=== PATIENT | male | born 1995 | race Caucasian/White ===

== ENCOUNTER 2017-01-21 11:44 | Emergency (ER) | payer BC ==
[2017-01-21 11:56] VITALS: BP 115/68
--- NOTE | 2017-01-21 12:16 | UC ---
Throat Pain/Nasal Al HPI - HPI Summary HPI Summary: 21 yo male with severe allergy symptoms since December runny nose itchy eyes nasal congestion no relief with his OTC meds has needed allergy shots in the past - History of Current Complaint Chief Complaint: UCRespiratory Stated Complaint: ALLERGIES Time Seen by Provider: 01/21/17 11:59 Hx Obtained From: Patient Onset/Duration: Gradual Onset, Lasting Weeks Severity: Severe Pain Intensity: 2 Pain Scale Used: 0-10 Numeric Cough: Productive Associated Signs & Symptoms: Positive: Nasal Discharge Related History: Seasonal Allergies - Epiglottits Risk Factors Epiglottis Risk Factors: Negative - Allergies/Home Medications Allergies/Adverse Reactions: Allergies Allergy/AdvReac Type Severity Reaction Status Date / Time No Known Allergies Allergy Verified 01/21/17 11:52 PMH/Surg Hx/FS Hx/Imm Hx Previously Healthy: Yes - Surgical History Surgical History: Yes Surgery Procedure, Year, and Place: Right Meniscus Knee Arthroscopy, 2011 2012, [facility] [place] - Family History Known Family History: Positive: Hypertension, Respiratory Disease - Social History Alcohol Use: Rare Substance Use Type: None Smoking Status (MU): Never Smoked Tobacco - Immunization History Most Recent Influenza Vaccination: Fall 2015 Review of Systems Constitutional: Negative Skin: Negative Eyes: Negative ENT: Ear Ache, Nasal Discharge Respiratory: Negative Cardiovascular: Negative Gastrointestinal: Negative Genitourinary: Negative Motor: Negative Neurovascular: Negative Musculoskeletal: Negative Neurological: Negative Psychological: Negative All Other Systems Reviewed And Are Negative: Yes Physical Exam Triage Information Reviewed: Yes Appearance: Well-Appearing, No Pain Distress, Well-Nourished Vital Signs: Initial Vital Signs Temp 97.7 F 01/21/17 11:49 Pulse 98 01/21/17 11:49 Resp 18 01/21/17 11:49 BP 115/68 01/21/17 11:49 Pulse Ox 100 01/21/17 11:49 Vital Signs Reviewed: Yes Eyes: Positive: Conjunctiva Clear ENT: Positive: Hearing grossly normal, Nasal congestion, Nasal drainage. Negative: Pharynx normal, Pharyngeal erythema, Tonsillar swelling, Tonsillar exudate, Trismus, Muffled/hoarse voice Dental Exam: Normal Neck: Positive: Supple, Nontender, No Lymphadenopathy Respiratory: Positive: Lungs clear, Normal breath sounds, No respiratory distress, No accessory muscle use Cardiovascular: Positive: RRR, No Murmur Bowel Sounds: Positive: Present Musculoskeletal: Positive: ROM Intact, No Edema Neurological: Positive: Alert Psychological Exam: Normal Skin Exam: Normal Throat Pain/Nasal Course/Dx - Differential Dx/Diagnosis Provider Diagnoses: seasonal allergic rhinitis Discharge - Discharge Plan Condition: Stable Disposition: HOME Prescriptions: Fluticasone NASAL SPRAY 50MCG* [Flonase NASAL SPRAY 50MCG*] 2 spray BOTH NARES DAILY #1 btl Loratadine & Pseudoephedrine [Claritin-D 24 Hour 10-240 mg] 1 tab PO DAILY PRN # 30 tab PRN Reason: allergy symptoms Patient Education Materials: Allergic Rhinitis (ED) Referrals: Non Staff,Doctor [Primary Care Provider] - Additional Instructions: see lead java software engineer as planned ZADITOR eye drops OTC
== END 2017-01-21 12:24 | disposition home or self-care (01) ==
LOC: UCCORT 11:44
DX: J30.2 Other seasonal allergic rhinitis (principal)
CPT/HCPCS: 99212; G0463

== ENCOUNTER 2017-09-07 13:03 | Emergency (ER) | payer BC ==
[2017-09-07 14:19] VITALS: BP 109/68
--- NOTE | 2017-09-07 14:38 | UC ---
Respiratory Complaint HPI - HPI Summary HPI Summary: cough x 2 days + sore throat, fever, chills, body aches - History of Current Complaint Chief Complaint: UCGeneralIllness Stated Complaint: BODY ACHES,COUGH Time Seen by Provider: 09/07/17 14:16 Hx Obtained From: Patient Onset/Duration: Gradual Onset, Lasting Days - 2, Still Present Timing: Constant Severity Initially: Moderate Severity Currently: Moderate Character: Cough: Nonproductive Aggravating Factors: Exertion, Deep Breaths Associated Signs And Symptoms: Positive: Fever, Chills, URI, Nasal Congestion - Allergies/Home Medications Allergies/Adverse Reactions: Allergies Allergy/AdvReac Type Severity Reaction Status Date / Time No Known Allergies Allergy Verified 09/07/17 14:19 PMH/Surg Hx/FS Hx/Imm Hx Previously Healthy: Yes - Surgical History Surgical History: Yes Surgery Procedure, Year, and Place: Right Meniscus Knee Arthroscopy, 2011 2012, [facility] - Family History Known Family History: Positive: Hypertension, Respiratory Disease - Social History Alcohol Use: Rare Substance Use Type: None Smoking Status (MU): Never Smoked Tobacco - Immunization History Most Recent Influenza Vaccination: CURRENT 2016/2017 Review of Systems Constitutional: Fever, Chills, Fatigue Skin: Negative Eyes: Negative ENT: Sore Throat, Nasal Discharge Respiratory: Cough Cardiovascular: Negative Gastrointestinal: Negative Musculoskeletal: Arthralgia, Myalgia Is Patient Immunocompromised?: No All Other Systems Reviewed And Are Negative: Yes Physical Exam Triage Information Reviewed: Yes Appearance: Well-Appearing, No Pain Distress, Well-Nourished Vital Signs: Initial Vital Signs Temp 99.1 F 09/07/17 14:15 Pulse 108 09/07/17 14:15 Resp 18 09/07/17 14:15 BP 109/68 09/07/17 14:15 Pulse Ox 99 09/07/17 14:15 Vital Signs Reviewed: Yes Eyes: Positive: Conjunctiva Clear ENT: Positive: Normal ENT inspection, Hearing grossly normal, Pharyngeal erythema, Nasal congestion Neck exam: Normal Neck: Positive: Supple, Nontender, No Lymphadenopathy Respiratory: Positive: Chest non-tender, Lungs clear, Normal breath sounds, No respiratory distress Cardiovascular: Positive: No Murmur, Tachycardia Abdominal Exam: Normal Abdomen Description: Positive: Nontender, Soft Bowel Sounds: Positive: Present Skin Exam: Normal UC Diagnostic Evaluation - Laboratory O2 Sat by Pulse Oximetry: 99 Respiratory Course/Dx - Differential Dx/Diagnosis Provider Diagnoses: pharyngitis Discharge - Discharge Plan Condition: Stable Disposition: HOME Prescriptions: Azithromycin TAB* [Zithromax TAB (Z-COY) 250 mg #6 tabs] 2 tab PO .TODAY, THEN 1 DAILY #1 coy Patient Education Materials: Pharyngitis (ED) Referrals: No Primary Care Phys,NOPCP [Primary Care Provider] - If Needed
== END 2017-09-07 14:59 | disposition home or self-care (01) ==
LOC: UCCORT 13:03
DX: J02.9 Acute pharyngitis, unspecified (principal)
CPT/HCPCS: 87502; 99212; G0463

== ENCOUNTER 2018-01-16 10:56 | Emergency (ER) | payer BC ==
[2018-01-16 13:20] VITALS: BP 115/63
[2018-01-16] MEDS ORDERED: Ibuprofen ADULT LIQ* 600 MG/30 ML UDC PO ONE (13:42)
--- NOTE | 2018-01-16 13:42 | UC ---
UC General HPI - HPI Summary HPI Summary: began about 2-3 days ago with sneezing and itchy eyes, took twan. yesterday, developed a subjective fever, sore throat, cough, headache and stiff neckk plus sore mm and some joint pains. no cp, sob, v/d/dysuria - History of Current Complaint Hx Obtained From: Patient, Family/Swimming Pool Installer And Servicer Onset/Duration: Gradual Onset Timing: Constant Pain Intensity: 6 Aggravating: nothing Associated Signs & Symptoms: Positive: Cough, Fever, Headache <Janice Luu - Last Filed: 01/16/18 13:33> <Jane Angel - Last Filed: 01/16/18 20:28> - History of Current Complaint Chief Complaint: UCGeneralIllness Stated Complaint: ACHY, HEADACHE, FEVER, FATIGUE Time Seen by Provider: 01/16/18 13:33 - Allergy/Home Medications Allergies/Adverse Reactions: Allergies Allergy/AdvReac Type Severity Reaction Status Date / Time No Known Allergies Allergy Verified 01/16/18 13:23 Home Medications: Home Medications Fexofenadine/Pseudoephedrine [Twan-D 24 Hour Tablet] 1 each PO 01/16/18 [ History] PMH/Surg Hx/FS Hx/Imm Hx Previously Healthy: Yes - Surgical History Surgical History: Yes Surgery Procedure, Year, and Place: Right Meniscus Knee Arthroscopy, 2011 2012, [facility] [place] - Family History Known Family History: Positive: Hypertension, Respiratory Disease - Social History Occupation: Student Lives: With Family Alcohol Use: Rare Substance Use Type: None Smoking Status (MU): Never Smoked Tobacco - Immunization History Most Recent Influenza Vaccination: CURRENT 2016/2017 Vaccination Up to Date: Yes <Janice Luu - Last Filed: 01/16/18 13:33> Review of Systems Constitutional: Fever, Chills ENT: Sore Throat Respiratory: Cough Musculoskeletal: Arthralgia, Myalgia Neurological: Headache Is Patient Immunocompromised?: No All Other Systems Reviewed And Are Negative: Yes <Janice Luu - Last Filed: 01/16/18 13:33> Physical Exam Triage Information Reviewed: Yes Appearance: Well-Appearing Vital Signs: Initial Vital Signs Temp 99.2 F 01/16/18 13:16 Pulse 109 01/16/18 13:16 Resp 18 01/16/18 13:16 BP 115/63 01/16/18 13:16 Pulse Ox 98 01/16/18 13:16 Eyes: Positive: Conjunctiva Clear ENT: Positive: Pharyngeal erythema - ? slight, TMs normal. Negative: Nasal congestion, Nasal drainage Neck: Positive: Supple, Nontender, No Lymphadenopathy. Negative: Nuchal Rigidity Respiratory: Positive: Lungs clear, Normal breath sounds, No respiratory distress Cardiovascular: Positive: RRR, No Murmur, Pulses Normal Abdomen Description: Positive: Nontender, No Organomegaly, Soft Bowel Sounds: Positive: Present Musculoskeletal: Positive: ROM Intact, No Edema Neurological: Positive: Alert Psychological: Positive: Normal Response To Family, Age Appropriate Behavior Skin Exam: Normal <Janice Luu - Last Filed: 01/16/18 13:33> Vital Signs: Initial Vital Signs Temp 99.2 F 01/16/18 13:16 Pulse 109 01/16/18 13:16 Resp 18 01/16/18 13:16 BP 115/63 01/16/18 13:16 Pulse Ox 98 01/16/18 13:16 <Jane Angel - Last Filed: 01/16/18 20:28> Diagnostics - Laboratory Diagnostic Studies Completed/Ordered: rapid flu and strep are neg <Janice Luu - Last Filed: 01/16/18 13:33> Re-Evaluation - Re-Evaluation Second Eval Change: Improved - HODGSON improving with the motrin <Janice Luu - Last Filed: 01/16/18 13:33> Course/Dx - Course Course Of Treatment: rapid flu and strep=neg. pt is non toxic. no concern for meningitis. tx supportive. close f/u for recheck advised. - Differential Dx - Multi-Symptom Provider Diagnoses: sore throat, myalgias, subjective fever <Janice Luu - Last Filed: 01/16/18 13:33> Discharge - Sign-Out/Discharge Documenting (check all that apply): Discharge/Admit/Transfer - Billing Disposition and Condition Condition: IMPROVED Disposition: HOME <Janice Luu - Last Filed: 01/16/18 13:33> - Billing Disposition and Condition Condition: IMPROVED Disposition: HOME <Jane Angel - Last Filed: 01/16/18 20:28> - Discharge Plan Condition: Improved Disposition: HOME Patient Education Materials: Pharyngitis (ED), Fever in Adults (ED), Musculoskeletal Pain (ED) Referrals: Maureen Christensen PA [Primary Care Provider] - 5 Days Attestation Statement User Type: Provider - I was available for consult. This patient was seen by the KAYLA. The patient was not presented to, seen by, or examined by me. -Bryce <Jane Angel - Last Filed: 01/16/18 20:28>
== END 2018-01-16 14:38 | disposition home or self-care (01) ==
LOC: UCCORT 10:56
DX: J02.9 Acute pharyngitis, unspecified (principal); M79.1 Myalgia; R50.9 Fever, unspecified
CPT/HCPCS: 87502; 87651; 99212; A9270-GY; G0463

== ENCOUNTER 2019-01-23 15:32 | Emergency (ER) | payer BC ==
[2019-01-23 16:08] VITALS: BP 99/67
--- NOTE | 2019-01-23 16:27 | UC ---
Respiratory Complaint HPI - HPI Summary HPI Summary: 23 yo male with about a 24 hour hx of sore throat (now resolved), cough, runny nose , fever, chills, headache and malaise as well as myalgias nausea no vomiting or diarrhea no CP or sob - History of Current Complaint Chief Complaint: UCGeneralIllness Stated Complaint: COUGH,FEVER,SINUSES,NAUSEA Time Seen by Provider: 01/23/19 16:21 Hx Obtained From: Patient Onset/Duration: Gradual Onset, Lasting Hours Timing: Constant Severity Initially: Mild Severity Currently: Moderate Pain Intensity: 2 Pain Scale Used: 0-10 Numeric Character: Cough: Nonproductive Aggravating Factors: Nothing Alleviating Factors: Nothing Associated Signs And Symptoms: Positive: Fever, Chills, Nasal Congestion - Allergies/Home Medications Allergies/Adverse Reactions: Allergies Allergy/AdvReac Type Severity Reaction Status Date / Time No Known Allergies Allergy Verified 01/16/18 13:23 Home Medications: Home Medications Cetirizine* [ZyrTEC 10 MG TAB*] 10 mg PO DAILY 01/23/19 [History Confirmed 01/23] D-Methorphan/PE/Acetaminophen [Gnp Day Time Cold/Flu Rel] 1 liq PO DAILY [History Confirmed 01/23/19] PMH/Surg Hx/FS Hx/Imm Hx Previously Healthy: Yes Respiratory History: Asthma - childhood - Surgical History Surgical History: Yes Surgery Procedure, Year, and Place: Right [place] [facility] [place] Family History Known Family History: Positive: Hypertension, Respiratory Disease - Social History Alcohol Use: Occasionally Substance Use Type: None Smoking Status (MU): Never Smoked Tobacco - Immunization History Most Recent Influenza Vaccination: CURRENT 2016/2017 Vaccination Up to Date: Yes Review of Systems All Other Systems Reviewed And Are Negative: Yes Constitutional: Positive: Fever, Chills, Fatigue ENT: Positive: Sore Throat - yesterday/none today, Nasal Discharge, Sinus Congestion, Sinus Pain/Tenderness Respiratory: Positive: Cough Cardiovascular: Positive: Negative Gastrointestinal: Positive: Negative Genitourinary: Positive: Negative Motor: Positive: Negative Neurovascular: Positive: Negative Musculoskeletal: Positive: Arthralgia, Myalgia Neurological: Positive: Headache Is Patient Immunocompromised?: Yes Physical Exam Triage Information Reviewed: Yes Appearance: Well-Appearing, No Pain Distress, Well-Nourished Vital Signs: Initial Vital Signs Temp 99.1 F 01/23/19 16:04 Pulse 105 01/23/19 16:04 Resp 18 01/23/19 16:04 BP 99/67 01/23/19 16:04 Pulse Ox 98 01/23/19 16:04 Vital Signs Reviewed: Yes Eyes: Positive: Conjunctiva Clear ENT: Positive: Hearing grossly normal, Pharynx normal, Nasal congestion, Nasal drainage, TMs normal, Uvula midline. Negative: Tonsillar swelling, Tonsillar exudate, Trismus, Muffled voice, Hoarse voice, Sinus tenderness Neck: Positive: Supple, Nontender, No Lymphadenopathy Respiratory: Positive: Lungs clear, Normal breath sounds, No respiratory distress, No accessory muscle use Cardiovascular: Positive: RRR, No Murmur Abdomen Description: Positive: Nontender, No Organomegaly Bowel Sounds: Positive: Present Musculoskeletal: Positive: ROM Intact, No Edema Neurological: Positive: Alert Psychological Exam: Normal Skin Exam: Normal Diagnostics - Laboratory Lab Results: influenza (-) Respiratory Course/Dx - Differential Dx/Diagnosis Provider Diagnosis: Viral URI with cough Discharge - Sign-Out/Discharge Documenting (check all that apply): Patient Departure All imaging exams completed and their final reports reviewed: No Studies - Discharge Plan Condition: Stable Disposition: HOME Prescriptions: Benzonatate CAP* [Tessalon CAP*] 100 - 200 mg PO TID PRN #28 cap PRN Reason: Cough Fluticasone NASAL SPRAY 50MCG* [Flonase NASAL SPRAY 50MCG*] 2 spray BOTH NARES BID #1 btl Patient Education Materials: Upper Respiratory Infection (ED) Forms: *Work Release Referrals: Maureen Christensen PA [Primary Care Provider] - 4 Days (if not better) Additional Instructions: flu test (-) - Billing Disposition and Condition Condition: STABLE Disposition: Home
[2019-01-23 16:47] LABS: Influenza A Molecular NEGATIVE (Negative); Influenza B Molecular NEGATIVE (Negative)
== END 2019-01-23 17:06 | disposition home or self-care (01) ==
LOC: UCCORT 15:32
DX: J06.9 Acute upper respiratory infection, unspecified (principal); R05 Cough; M79.10 Myalgia, unspecified site
CPT/HCPCS: 99212; G0463